=== PATIENT | female | born 2005 | race African-American/Black ===

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

== ENCOUNTER 2023-02-07 10:16 | Emergency (ER) | payer MEDICAID, SELFPAY ==
[2023-02-07 10:26] VITALS: BP 115/82; PULSE 71; RESP 16; TEMP 36.9; O2SAT 100
--- NOTE | 2023-02-07 10:39 | ED.FEMALEGU ---
HPI - Female Genitourinary General Chief complaint: Urogenital-Female Stated complaint: Vaginal Problems Time Seen by Provider: 02/07/23 10:39 Source: patient Mode of arrival: ambulatory Limitations: no limitations History of Present Illness HPI Narrative: 17-year-old female presents with complaint of vaginal odor and discharge for the past 3 days. Reports that discharge is thick and white. Reports history of frequent BV. Thinks that BV is related to her Mirena. would like STI testing also. Has not been sexually active for 3 weeks but just wants to be safe. Denies . 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 Denies abdominal pain. Denies dysuria, frequency, urgency. All systems reviewed and negative except as noted above. Related Data Home Medications Medication Instructions Recorded Confirmed levonorgestrel 17.5 mcg/24 hrs 1 device intrauterine ONCE 10/24/22 02/07/23 (5yrs) 19.5mg intrauterine device (Kyleena) Allergies Allergy/AdvReac Type Severity Reaction Status Date / Time No Known Allergies Allergy Verified 02/07/23 10:18 Review of Systems Review of Systems: CONSTITUTIONAL: Denies fever, chills, or sweats. EYES: Denies visual changes, redness, or discharge. ENT: Denies rhinorrhea, congestion, sore throat, or otalgia. CARDIOVASCULAR: Denies chest pain, palpitations, or edema. RESPIRATORY: Denies cough or dyspnea. GASTROINTESTINAL: Denies abdominal pain, nausea, vomiting, or diarrhea. GENITOURINARY: Denies dysuria or hematuria. Reports vaginal odor and discharge. SKIN: Denies rash or itching. MUSCULOSKELETAL: Denies back pain, joint pain, or myalgia. NEUROLOGIC: Denies headache, numbness, or weakness. PSYCHIATRIC: Denies anxiety or depression. All other systems reviewed are negative, except as documented in HPI. [facility] Past Medical History Medical History No significant past medical history Surgical History Surgical History No significant past surgical history Family History Family History Other No significant family history Social History Social History Smoking status: Never smoker Alcohol intake: never Substance use: never Living arrangements: with family Occupation/Education: student Gender identity (if verbalized by the patient): Female Comments At time of signature, agree with nursing past medical, surgical, social and family history. There is no relevant family history pertinent to the presenting complaint. Exam Narrative: GENERAL: This is a well-nourished, well-developed patient, in no apparent distress. HEAD: normocephalic, atraumatic. EYES: PERRL. Sclera clear/white. Vision is grossly intact. EARS: External ears normal NOSE: External nose normal NECK: Neck supple, non-tender without lymphadenopathy, masses or thyromegaly. CARDIOVASCULAR: Regular rate and rhythm without murmurs, gallops, or rubs. RESPIRATORY: Clear to auscultation. Breath sounds equal bilaterally. No wheezes, rales, or rhonchi. SKIN: warm, Dry, intact with no suspicious lesions or rash, good texture and turgor. NEURO: awake, alert, and oriented to person, place and time. There were no obvious focal neurologic abnormalities. EXTREMITIES: No joint tenderness, effusion, or edema noted. Patient declined pelvic exam Course Course Level of Care: Express Care Visit Vital Signs Vital signs: Vital Signs Temperature 36.9 C 02/07/23 10:26 Pulse Rate 71 02/07/23 10:26 Respiratory Rate 16 02/07/23 10:26 Blood Pressure 115/82 02/07/23 10:26 Pulse Oximetry 100 02/07/23 10:26 Oxygen Delivery Room Air 02/07/23 10:26 Temperature 36.9 C 02/07/23 10:26 Pulse Rate 71 02/07/23 1
== END 2023-02-07 10:50 | disposition home or self-care (01) ==
PROVIDERS: Emergency Provider Nurse Practitioner Family
DX: N76.0 Acute vaginitis (principal)
CPT/HCPCS: 87491; 87591; 87661; 99214; G0463

== ENCOUNTER 2023-07-28 08:05 | Emergency (ER) | payer SELFPAY ==
--- NOTE | 2023-07-28 08:08 | ED.FEMALEGU ---
HPI - Female Genitourinary General Chief complaint: Urogenital-Female Stated complaint: Vaginal Problems Time Seen by Provider: 07/28/23 08:23 Source: patient and RN notes reviewed Mode of arrival: ambulatory Limitations: no limitations History of Present Illness HPI Narrative: 16-year-old female presents concern for vaginal itching, irritation, burning started yesterday. She reports some burning with urination, denies frequency, urgency, back pain, abdominal pain, nausea, vomiting. She denies abnormal vaginal discharge. She reports unprotected sex 1-2 weeks ago without known exposure. She has had an STD in the past. She also has history of frequent yeast and BV. She denies fever, aches, chills, sweats. MD elicited complaint: UTI Related Data Home Medications Medication Instructions Recorded Confirmed levonorgestrel 17.5 mcg/24 hrs 1 device intrauterine ONCE 10/24/22 07/28/23 (5yrs) 19.5mg intrauterine device (Kyleena) Allergies Allergy/AdvReac Type Severity Reaction Status Date / Time No Known Allergies Allergy Verified 07/28/23 08:12 Review of Systems Review of Systems: CONSTITUTIONAL: Denies malaise, chills, sweats, or fever. CARDIOVASCULAR: Denies chest pain, palpitations, or edema. RESPIRATORY: Denies cough or dyspnea. GASTROINTESTINAL: Denies abdominal pain, nausea, vomiting, diarrhea GENITOURINARY: Reports dysuria, vaginal itching, irritation. Denies abnormal vaginal discharge, frequency, urgency, suprapubic pressure. Denies flank pain or hematuria. SKIN: Denies rash or itching. MUSCULOSKELETAL: Denies back pain or myalgia. All systems reviewed & are unremarkable except as noted in HPI and below PMFSH Past Medical History Medical History (Updated 07/28/23 @ 08:46 by Nelda Sabillon NP) No significant past medical history Surgical History Surgical History (Updated 05/22/23 @ 09:57 by Lauren oKng CMA) H/O gynecological procedure Kyleena IUD insertion Family History Family History Other No significant family history Social History Social History (Updated 05/22/23 @ 09:57 by Lauren Kong CMA) Smoking status: Never smoker Alcohol intake: never Substance use: never Living arrangements: with family Occupation/Education: student Gender identity (if verbalized by the patient): Female Sexual Orientation (if Verbalized by the Patient): Straight or Heterosexual Comments At time of signature, agree with nursing past medical, surgical, social and family history. There is no relevant family history pertinent to the presenting complaint Exam Narrative: GENERAL: Well-appearing, well-nourished, and in no acute distress. HEAD: Normocephalic. EYES: PERRLA, conjunctivae clear. NECK: Supple. No lymphadenopathy CHEST: Clear to auscultation. No respiratory distress. HEART: Regular rate and rhythm. SKIN: Warm, dry, no rash. NEURO: Alert and oriented x3. PSYCH: Normal mood and affect Course Course Emergency Course: Patient is aware of, understands and agrees to treatment plan. Anticipatory guidance given. Patient agrees to follow-up as directed and is aware of reasons to seek care at the emergency department. Portions of this record may have been created with voice recognition software Level of Care: Express Care Visit Vital Signs Vital signs: Reviewed. MDM - Female Genitourinary MDM Narrative Medical decision making narrative: Exam findings and UA show no acute concerns or changes; patient is non-toxic appearing and is in no distress. Patient is appropriate for outpatient treatment and follow-up. Differential Diagnosis Differential diagnosis: Likely urinary tract infection and cystitis Critical Care Time Critical Care Time Critical Care Time: No Discharge Plan Discharge Clinical Impression: Vaginitis Patient Disposition: Home, Self-Care Condition: Stable Instructions: Anti
[2023-07-28 08:18] VITALS: BP 113/82; PULSE 75; RESP 16; TEMP 36.7; O2SAT 100
[2023-07-28 14:29] LABS: Trichomonas Vag PCR DETECTED (NOT DETECTE)
[2023-07-28 15:04] LABS: Chlamydia trachomatis NOT DETECTED (NOT DETECTE); Neisseria gonorrhoeae PCR NOT DETECTED (NOT DETECTE)
== END 2023-07-28 09:00 | disposition home or self-care (01) ==
PROVIDERS: Emergency Provider Nurse Practitioner
DX: N76.0 Acute vaginitis (principal); A59.9 Trichomoniasis, unspecified
CPT/HCPCS: 81003; 81025; 87086; 87491; 87591; 87661; 99214; G0463